=== PATIENT | male | born 1945 | race Caucasian/White ===

== ENCOUNTER → 2021-03-11 | Outpatient (REF) | payer OTHER ==
--- NOTE | 2021-03-12 23:50 | ECHO ---
ECHOCARDIOGRAM DATE OF PROCEDURE: 03/11/2021 Age: 76 Gender: Male Height: 75 inches Weight: 178 pounds Body surface area: 2.32 m2 PATIENT LOCATION: Outpatient REFERRING PHYSICIAN: Kale Dickerson M.D. INDICATION: Abnormal EKG. Recent chest trauma with fractured ribs. MEASUREMENTS: 2D Measurements: RV 3.8 cm LV 4.7 cm Septum 1.0 cm Posterior wall 1.0 cm Aortic Root 2.9 cm LVEF 45-50% Unfortunately unable to obtain any further measurements or meaningful Doppler data beyond his LV inflow tract. MV-E 51, A 81, E/A ratio 0.6 Early mitral deceleration time 259 msec COMMENTS: Normal sinus rhythm with left bundle branch block. Technically difficult study in light of the patient's chest injury, but some useful information was still obtained from the subcostal projections. 2D imaging was performed from the subcostal four chamber, two chamber and short access views with pulsed Doppler of his LV inflow tract. An attempted tissue Doppler that is not valid and pulse and continuous wave Doppler of his aortic valve and LV inflow tract. However, the angle is off by more than 20 degrees. Normal left ventricular size and wall thickness with paradoxical septal motion and apical akinesis in keeping with his left bundle branch block and at least mild impairment of global resting systolic function. His left atrium was at least mildly dilated with Doppler evidence of an impairment of LV diastolic function, but we could not further estimate his mean left atrial pressure. Right heart chamber sizes appear to be normal with normal wall motion. Moderate mitral annular calcification without inflow tract obstruction and no more than very mild insufficiency. His aortic valve could not be visualized, but did not appear to be thickened. His aortic root was normal in diameter. His tricuspid was not thickened, and there was no more than very mild insufficiency on color flow Doppler. No apparent intracardiac mass in either left or right ventricles and no pericardial effusion. MTDD
== END ==
LOC: M CARPUL 13:14 → EDSTATUS 13:30
PROVIDERS: ATTEND Internal Medicine
DX: I44.7 Left bundle-branch block, unspecified (principal)